=== PATIENT | male | born 1955 | race Caucasian/White ===

== ENCOUNTER 2023-05-20 05:18 | Observation (INO) | payer MEDICARE ==
[~2023-05-20] VITALS: Ht 190.5 cm; Wt 106.2 kg
[2023-05-20] MEDS ORDERED: ONDANSETRON 4MG INJ IVP ONE (05:30)
[2023-05-20] MEDS ORDERED: 0.9%NACL 1000ML 1,000 ML IV ONE (05:30)
[2023-05-20 06:12] LABS: BASOPHILS % (AUTO) 0.3 % (0.0-5.0); EOSINOPHILS % (AUTO) 1.1 % (0.0-8.0); HEMATOCRIT 44.8 % (42-54); LYMPHOCYTES % (AUTO) 11.4 % (21.0-51.0); MEAN CORPUSCULAR HEMOGLOBIN 31.1 pg (27.0-33.0); MEAN CORPUSCULAR HGB CONC 33.9 g/dL (32.0-36.0); MEAN CORPUSCULAR VOLUME 91.8 fL (79-99); MONOCYTES % (AUTO) 3.9 % (3.0-13.0); PLATELET COUNT (AUTO) 116 K/uL (130-400); RED BLOOD CELL COUNT(AUTO) 4.88 MIL/uL (4.50-6.20); RED CELL DISTRIBUTION WIDTH 12.7 % (11.0-15.5); WHITE BLOOD COUNT (AUTO) 15.5 K/uL (4.8-10.8)
[2023-05-20 06:30] LABS: CREATININE 0.8 mg/dL (0.5-1.5); POTASSIUM 3.8 mmol/L (3.5-5.1); TOTAL PROTEIN, SERUM 6.8 g/dL (6.0-8.3)
[2023-05-20] MEDS ORDERED: DiphenhydrAMINE HCL 50 MG/ML VIAL IV PRN (08:00)
[2023-05-20] MEDS ORDERED: GLUCAGON 1MG KIT 1 MG ML IM PRN (08:00)
[2023-05-20] MEDS ORDERED: KCL 20 MEQ ERTAB PO PRN (08:00)
[2023-05-20] MEDS ORDERED: LIDOCAINE HCL 2% PO PRN ×6 (08:00→09:30)
[2023-05-20] MEDS ORDERED: MAGNESIUM 2GM PREMIX 50ML 50 ML IV PRN (08:00)
[2023-05-20] MEDS ORDERED: MORPHINE 4 MG SYG IVP ONE (08:00)
[2023-05-20] MEDS ORDERED: POTASSIUM CHLORIDE 20MEQ/100ML 100 ML IV PRN ×2 (08:00)
[2023-05-20] MEDS ORDERED: LOPERAMIDE HCL 2 MG CAP PO PRN (08:00)
[2023-05-20] MEDS ORDERED: HYDRALAZINE 25MG TABLET PO PRN (08:00)
[2023-05-20] MEDS ORDERED: GUAIFENESIN SUGAR-FREE 100 MG/5 ML UDCUP PO PRN (08:00)
[2023-05-20] MEDS ORDERED: ZOLPIDEM TARTRATE 5 MG TAB PO PRN (08:00)
[2023-05-20] MEDS ORDERED: LACTULOSE 20 GM/30 ML UDCUP PO PRN (08:00)
[2023-05-20] MEDS ORDERED: POTASSIUM CHLORIDE 10% ELIXIR 20 MEQ/15 ML UDCUP PO PRN (08:00)
[2023-05-20] MEDS ORDERED: NITROGLYCERIN 0.4 MG SL TAB SL PRN (08:00)
[2023-05-20] MEDS ORDERED: VISC PO PRN ×6 (08:00→09:30)
[2023-05-20] MEDS ORDERED: ONDANSETRON 4MG INJ IV PRN (08:00)
[2023-05-20] MEDS ORDERED: DICYCLOMINE HCL PO PRN ×6 (08:00→09:30)
[2023-05-20] MEDS ORDERED: DOCUSATE SODIUM 100 MG CAP PO PRN (08:00)
[2023-05-20] MEDS ORDERED: ALUM PO PRN ×6 (08:00→09:30)
[2023-05-20] MEDS ORDERED: SIMETH PO PRN ×6 (08:00→09:30)
[2023-05-20] MEDS ORDERED: DEXTROSE 50%-WATER 50 ML DISP.SYRIN IV PRN (08:00)
[2023-05-20] MEDS ORDERED: ALBUTEROL 0.083% 2.5 MG/3 ML INH IH PRN (08:00)
[2023-05-20] MEDS ORDERED: 0.9%NACL 1000ML 1,000 ML IV SCH (08:00)
[2023-05-20] MEDS ORDERED: POLYETHYLENE GLYCOL 3350 17 GM POWD.PACK PO PRN (08:00)
[2023-05-20] MEDS ORDERED: MAG PO PRN ×6 (08:00→09:30)
[2023-05-20] MEDS ORDERED: ALPRAZOLAM 0.5 MG TABLET PO PRN (08:00)
[2023-05-20] MEDS ORDERED: ACETAMINOPHEN 325 MG TAB PO PRN ×2 (08:00)
[2023-05-20] MEDS: FAMOTIDINE 20MG VIAL IV SCH ×2 (09:06→21:06)
[2023-05-20] MEDS: 0.9%NACL 1000ML 1,000 ML IV SCH (09:45)
[2023-05-20 11:13] LABS: APPEARANCE,URINE CLEAR (CLEAR); BILIRUBIN,URINE NEGATIVE (NEGATIVE); COLOR,URINE LIGHT-YELLOW (YELLOW); GLUCOSE, URINE (UA) NEGATIVE (NEGATIVE); OCCULT BLOOD,URINE SMALL (NEGATIVE); PROTEIN,URINE NEGATIVE (NEGATIVE)
[2023-05-20 11:14] LABS: KETONES,URINE NEGATIVE (NEGATIVE); LEUKOCYTE ESTERASE ,URINE NEGATIVE Leu/uL (NEGATIVE); NITRATE,URINE NEGATIVE (NEGATIVE); UROBILINOGEN,URINE 0.2 mg/dL (0.2-1.0)
[2023-05-20] MEDS: INSULIN HUMULIN R 100 UNIT/ML 3ML SQ SCH ×2 (11:30→16:30)
[2023-05-20 13:11] VITALS: BP 143/86
[2023-05-20 16:24] VITALS: BP 120/58
[2023-05-20 19:59] VITALS: BP 117/64
[2023-05-20 23:46] VITALS: BP 131/68
[2023-05-21] VITALS (20 sets, daily range): BP systolic 107–147; BP diastolic 64–99
[2023-05-21 04:41] LABS: BASOPHILS % (AUTO) 0.2 % (0.0-5.0); EOSINOPHILS % (AUTO) 0.3 % (0.0-8.0); HEMATOCRIT 39.1 % (42-54); LYMPHOCYTES % (AUTO) 10.1 % (21.0-51.0); MEAN CORPUSCULAR HEMOGLOBIN 31.1 pg (27.0-33.0); MEAN CORPUSCULAR HGB CONC 34.3 g/dL (32.0-36.0); MEAN CORPUSCULAR VOLUME 90.7 fL (79-99); MONOCYTES % (AUTO) 7.8 % (3.0-13.0); NEUTROPHILS % (AUTO) 79.4 % (40.0-77.0); PLATELET COUNT (AUTO) 127 K/uL (130-400); RED BLOOD CELL COUNT(AUTO) 4.31 MIL/uL (4.50-6.20); RED CELL DISTRIBUTION WIDTH 12.8 % (11.0-15.5); WHITE BLOOD COUNT (AUTO) 12.7 K/uL (4.8-10.8)
[2023-05-21 04:50] LABS: CREATININE 0.8 mg/dL (0.5-1.5); MAGNESIUM 1.6 mg/dL (1.80-2.40); POTASSIUM 3.4 mmol/L (3.5-5.1)
[2023-05-21 05:55] LABS: INR 1.07 (0.85-1.15); PROTHROMBIN TIME 12.4 SEC (9.6-11.6)
[2023-05-21 05:56] LABS: PARTIAL THROMBOPLASTIN TIME 31.2 SEC (26.3-35.5)
[2023-05-21] MEDS ORDERED: PROPOFOL 10 MG/ML 20ML VIAL IV ONE ×2 (06:59→07:18)
[2023-05-21] MEDS: INSULIN HUMULIN R 100 UNIT/ML 3ML SQ SCH ×3 (07:30→16:30)
[2023-05-21] MEDS: 0.9%NACL 1000ML 1,000 ML IV SCH ×5 (08:42→15:23)
[2023-05-21] MEDS: FAMOTIDINE 20MG VIAL IV SCH (08:43)
[2023-05-21] MEDS ORDERED: FAMO20TA8 PO (17:42)
== END 2023-05-21 18:48 | disposition home or self-care (01) ==
LOC: EDH 05:18 → EDHIP 07:50 → 4DH 12:50
PROVIDERS: ADMIT Internal Medicine Critical Care Medicine; ATTEND Internal Medicine Critical Care Medicine
DX: K85.90 Acute pancreatitis without necrosis or infection, unspecified (principal); Z20.822 Contact with and (suspected) exposure to COVID-19; D72.829 Elevated white blood cell count, unspecified; D69.6 Thrombocytopenia, unspecified; I10 Essential (primary) hypertension; K86.89 Other specified diseases of pancreas; E66.9 Obesity, unspecified; Z88.0 Allergy status to penicillin; Z79.899 Other long term (current) drug therapy
CPT/HCPCS: 96374; 96376 ×2; 96361 ×2; 96375; 99285; 84484; 84478; 80053 ×2; 83690 ×2; 85025 ×2; 82948; 83605; 81001; 36415 ×2; 74176; 76705; 93005; 84145; 83735; 85610; 85730; 86316; 82378; 87635; 43238; G0378 ×33; J3490 ×3; J7030 ×4; J2405; J2270; J2704 ×2; A4620; A4215 ×3; A4223; A4657 ×2; A7002; A4222; A4221; A4216; A4606

== ENCOUNTER → 2024-10-28 | Outpatient (CLI) | payer MEDICARE ==
[~2024-10-28] MED LIST: FAMO20TA8 PO
--- NOTE | 2024-10-28 13:51 | HMCIMG ---
LUMBAR SPINE 4+VWS HISTORY: Low back pain COMPARISON: None FINDINGS: 5 images of lumbar spine were obtained including the oblique views. There is dextroscoliosis. Disc space narrowings are seen at L4-5 and L5-S1 levels. There is straightening of normal lordotic curvature which may be related to muscle spasm or positioning. No loss of vertebral height is seen. No fracture or dislocation is seen. Degenerative changes are seen. IMPRESSION: 1. No fracture is seen. DJD with lumbar spine spondylosis.
== END | disposition home or self-care (01) ==
LOC: RAH 13:05
PROVIDERS: ATTEND Physician Assistant Medical
DX: M47.816 Spondylosis without myelopathy or radiculopathy, lumbar region (principal); M54.50 Low back pain, unspecified; M41.86 Other forms of scoliosis, lumbar region; M48.061 Spinal stenosis, lumbar region without neurogenic claudication
CPT/HCPCS: 72110